=== PATIENT | female | born 1980 | race African-American/Black ===

== ENCOUNTER 2017-04-20 15:43 | Inpatient (IN) | payer MEDICAID ==
[~2017-04-20] VITALS: Ht 172.7 cm; Wt 61.2 kg
[2017-04-20 18:13] LABS: CHLORIDE 100 mEq/L (98-107)
[2017-04-20 18:18] LABS: HEMATOCRIT. 34.1 % (36.0-48.0); HEMOGLOBIN. 11.2 g/dL (12.0-16.0); MEAN CORPUSCULAR HEMOGLOBIN 26.8 pg (28.0-32.0); MEAN CORPUSCULAR VOLUME 81.5 fL (81.0-99.0); MEAN PLATELET VOLUME 7.7 fl (7.4-10.4); PLATELET 272 x1000/uL (130-400); RED BLOOD CELL COUNT 4.18 mill/uL (4.2-5.4); RED CELL DISTRIBUTION WIDTH 14.5 % (11.6-14.6)
[2017-04-20 18:19] LABS: CARBON DIOXIDE 25 mEq/L (21-32)
[2017-04-20 18:23] LABS: INR 1.3; PROTHROMBIN TIME 13.2 sec (9.4-11.6)
[2017-04-20 18:24] LABS: TROPONIN I < 0.02 ng/mL (0.00-0.04)
[2017-04-20] MEDS ORDERED: ONDANSETRON HCL 4MG/2ML VIAL IV ONE (19:00)
[2017-04-20] MEDS ORDERED: LEVOFLOXACIN 750MG PREMIX 150 ML IV ONE (19:00)
[2017-04-20] MEDS ORDERED: MORPHINE SULFATE 4 MG/ML CPJ (NOT FOR IM USE) IV ONE (19:00)
[2017-04-20] MEDS ORDERED: SODIUM CHLORIDE 0.9% 1,000 ML IV SCH (20:11)
[2017-04-20] MEDS ORDERED: ALBUTEROL (0.083%) 2.5MG/3ML NEB HHN ONE (20:45)
[2017-04-20] MEDS ORDERED: METHYLPREDNISOLONE SOD SUCC 125 MG/2 ML VIAL IV ONE (20:45)
[2017-04-20] MEDS ORDERED: IPRATROPIUM BROMIDE (0.02%) 0.5MG/2.5ML NEB HHN ONE (20:45)
[2017-04-20 20:48] LABS: PLATELET ESTIMATE NORMAL
[2017-04-20 23:45] VITALS: BP 121/80
[2017-04-21] VITALS: BP 121/80
[2017-04-21] MEDS ORDERED: ALBU18HF2 ORI (00:13)
[2017-04-21] MEDS ORDERED: FERR325T6 PO (00:15)
[2017-04-21] MEDS ORDERED: SERT100T PO (00:15)
[2017-04-21] MEDS ORDERED: QVAR ORI (00:15)
[2017-04-21] MEDS ORDERED: QUET25TA PO (00:15)
[2017-04-21] MEDS ORDERED: MORPHINE SULFATE 4 MG/ML CPJ (NOT FOR IM USE) IV PRN (02:00)
[2017-04-21] MEDS ORDERED: IPRATROPIUM/ALBUTEROL 0.5-3(2.5)MG/3ML NEB INH PRN (02:00)
[2017-04-21] MEDS ORDERED: CLONIDINE 0.1MG TABLET PO PRN (02:00)
[2017-04-21] MEDS ORDERED: GUAIFENESIN 200MG/10ML SUGAR FREE UDC PO PRN (02:00)
[2017-04-21] MEDS ORDERED: DIPHENHYDRAMINE 50MG/ML VIAL IV PRN (02:00)
[2017-04-21] MEDS ORDERED: SERTRALINE HCL 100MG TABLET PO SCH (02:17)
[2017-04-21 04:00] VITALS: BP 107/66
[2017-04-21] MEDS: METHYLPREDNISOLONE SOD SUCC 40 MG/ML VIAL IV SCH ×3 (05:41→21:02)
[2017-04-21 07:39] LABS: HEMATOCRIT. 31.6 % (36.0-48.0); HEMOGLOBIN. 10.3 g/dL (12.0-16.0); MEAN CORPUSCULAR VOLUME 82.7 fL (81.0-99.0); MEAN PLATELET VOLUME 7.9 fl (7.4-10.4); PLATELET 271 x1000/uL (130-400); RED BLOOD CELL COUNT 3.82 mill/uL (4.2-5.4); RED CELL DISTRIBUTION WIDTH 14.3 % (11.6-14.6)
[2017-04-21 08:00] VITALS: BP 106/67
[2017-04-21] MEDS: FERROUS SULFATE 325MG TABLET PO SCH ×2 (08:10→18:10)
[2017-04-21] MEDS: OMEPRAZOLE 20MG CAPSULE EXTENDED RELEASE PO SCH (08:40)
[2017-04-21] MEDS: ENOXAPARIN 40MG/0.4ML SYR SUBCUT SCH (08:40)
[2017-04-21 08:55] LABS: CARBON DIOXIDE 28 mEq/L (21-32); CHLORIDE 103 mEq/L (98-107)
[2017-04-21] MEDS: IPRATROPIUM/ALBUTEROL 0.5-3(2.5)MG/3ML NEB HHN SCH ×3 (08:59→20:56)
[2017-04-21] MEDS ORDERED: QUETIAPINE FUMARATE 25MG TABLET PO PRN (09:00)
[2017-04-21] MEDS ORDERED: MEDICATION NOT ON FORMULARY EA (Ferrous Sulfate 325 MG) PO SCH (09:00)
[2017-04-21 12:00] VITALS: BP 112/79
[2017-04-21 13:28] LABS: PLATELET ESTIMATE NORMAL
[2017-04-21 16:00] VITALS: BP 129/79
[2017-04-21] MEDS ORDERED: LEVOFLOXACIN 500MG PREMIX 100 ML IV SCH (19:00)
[2017-04-21 20:00] VITALS: BP 118/72
[2017-04-21] MEDS: ONDANSETRON HCL 4MG/2ML VIAL IV PRN (21:08)
[2017-04-21] MEDS: SERTRALINE HCL 100MG TABLET PO SCH (23:46)
[2017-04-22] VITALS: BP 121/75
[2017-04-22] MEDS: IPRATROPIUM/ALBUTEROL 0.5-3(2.5)MG/3ML NEB HHN SCH ×4 (01:40→21:55)
[2017-04-22 04:00] VITALS: BP 124/84
[2017-04-22] MEDS: METHYLPREDNISOLONE SOD SUCC 40 MG/ML VIAL IV SCH ×3 (05:48→21:12)
[2017-04-22 08:00] VITALS: BP 117/85
[2017-04-22] MEDS: FERROUS SULFATE 325MG TABLET PO SCH ×2 (08:10→18:04)
[2017-04-22] MEDS: ENOXAPARIN 40MG/0.4ML SYR SUBCUT SCH (09:00)
[2017-04-22] MEDS: OMEPRAZOLE 20MG CAPSULE EXTENDED RELEASE PO SCH (09:00)
[2017-04-22 12:00] VITALS: BP 127/93
[2017-04-22 15:16] LABS: HEMATOCRIT. 32.6 % (36.0-48.0); HEMOGLOBIN. 10.5 g/dL (12.0-16.0); MEAN CORPUSCULAR HEMOGLOBIN 26.6 pg (28.0-32.0); MEAN CORPUSCULAR VOLUME 82.7 fL (81.0-99.0); MEAN PLATELET VOLUME 7.8 fl (7.4-10.4); PLATELET 359 x1000/uL (130-400); RED BLOOD CELL COUNT 3.94 mill/uL (4.2-5.4); RED CELL DISTRIBUTION WIDTH 14.5 % (11.6-14.6)
[2017-04-22 15:36] LABS: CARBON DIOXIDE 28 mEq/L (21-32); CHLORIDE 103 mEq/L (98-107)
[2017-04-22 16:00] VITALS: BP 124/85
[2017-04-22] MEDS: CEFTRIAXONE 2 G in DEXT 5% WATER 100 ML IV SCH (16:37)
[2017-04-22] MEDS ORDERED: VANCOMYCIN 1250MG in DEXTROSE 5% WATER 250ML IV SCH (17:00)
[2017-04-22 19:20] LABS: CLARITY URINE CLEAR (CLEAR); COLOR URINE YELLOW (YELLOW); GLUCOSE URINE 2+ (NEGATIVE); KETONES URINE NEGATIVE (NEGATIVE); LEUKOCYTE ESTERASE URINE NEGATIVE (NEGATIVE); NITRITE URINE NEGATIVE (NEGATIVE); OCCULT BLOOD URINE NEGATIVE (NEGATIVE); PROTEIN URINE 1+ (NEGATIVE); SPECIFIC GRAVITY URINE 1.032 (1.005-1.030)
[2017-04-22 20:00] VITALS: BP 130/79
[2017-04-22 21:00] LABS: PLATELET ESTIMATE NORMAL
[2017-04-22] MEDS: SERTRALINE HCL 100MG TABLET PO SCH (21:12)
[2017-04-22] MEDS: ONDANSETRON HCL 4MG/2ML VIAL IV PRN (22:12)
[2017-04-22] MEDS ORDERED: DEXTROSE 50% WATER 50ML SYRINGE IV PRN (22:45)
[2017-04-22] MEDS ORDERED: POTASSIUM CHLORIDE 20MEQ TABLET SR PO NR (22:52)
[2017-04-22] MEDS: ACETAMINOPHEN 325MG TABLET PO PRN (22:56)
[2017-04-23] VITALS: BP 123/93
[2017-04-23] MEDS: VANCOMYCIN 1 G PREMIX 200 ML IV SCH ×2 (02:00→09:28)
[2017-04-23] MEDS: IPRATROPIUM/ALBUTEROL 0.5-3(2.5)MG/3ML NEB HHN SCH ×4 (02:39→15:44)
[2017-04-23 04:00] VITALS: BP 124/71
[2017-04-23] MEDS: BLOOD SUGAR DIAGNOSTIC STRIP TEST SCH ×4 (05:33→20:53)
[2017-04-23] MEDS: METHYLPREDNISOLONE SOD SUCC 40 MG/ML VIAL IV SCH ×3 (05:44→20:33)
[2017-04-23 05:46] LABS: HEMATOCRIT. 30.8 % (36.0-48.0); HEMOGLOBIN. 10.2 g/dL (12.0-16.0); MEAN CORPUSCULAR HEMOGLOBIN 27.4 pg (28.0-32.0); MEAN CORPUSCULAR VOLUME 82.6 fL (81.0-99.0); MEAN PLATELET VOLUME 7.6 fl (7.4-10.4); PLATELET 377 x1000/uL (130-400); RED BLOOD CELL COUNT 3.74 mill/uL (4.2-5.4); RED CELL DISTRIBUTION WIDTH 14.6 % (11.6-14.6)
[2017-04-23 06:48] LABS: CARBON DIOXIDE 28 mEq/L (21-32); CHLORIDE 103 mEq/L (98-107)
[2017-04-23 08:00] VITALS: BP 137/90
[2017-04-23] MEDS: INSULIN LISPRO 100 UNITS/ML SUBCUT SCH ×4 (08:10→20:53)
[2017-04-23] MEDS: FERROUS SULFATE 325MG TABLET PO SCH ×2 (08:10→17:10)
[2017-04-23] MEDS: OMEPRAZOLE 20MG CAPSULE EXTENDED RELEASE PO SCH (09:26)
[2017-04-23] MEDS: ACETAMINOPHEN 325MG TABLET PO PRN (09:27)
[2017-04-23] MEDS: ENOXAPARIN 40MG/0.4ML SYR SUBCUT SCH (09:27)
[2017-04-23 12:00] VITALS: BP 128/85
[2017-04-23 16:00] VITALS: BP 125/80
[2017-04-23] MEDS: CEFTRIAXONE 2 G in DEXT 5% WATER 100 ML IV SCH (17:59)
[2017-04-23 20:00] VITALS: BP 121/86
[2017-04-23] MEDS: SERTRALINE HCL 100MG TABLET PO SCH (20:33)
[2017-04-23 20:51] LABS: PLATELET ESTIMATE NORMAL
[2017-04-24] VITALS: BP 125/76
[2017-04-24] MEDS: IPRATROPIUM/ALBUTEROL 0.5-3(2.5)MG/3ML NEB HHN SCH ×2 (00:33→16:34)
[2017-04-24 04:00] VITALS: BP 141/87
[2017-04-24] MEDS: METHYLPREDNISOLONE SOD SUCC 40 MG/ML VIAL IV SCH ×2 (06:25→13:35)
[2017-04-24 06:50] LABS: HEMATOCRIT. 31.9 % (36.0-48.0); HEMOGLOBIN. 10.5 g/dL (12.0-16.0); MEAN CORPUSCULAR HEMOGLOBIN 26.9 pg (28.0-32.0); PLATELET 442 x1000/uL (130-400); RED BLOOD CELL COUNT 3.89 mill/uL (4.2-5.4); RED CELL DISTRIBUTION WIDTH 14.4 % (11.6-14.6)
[2017-04-24] MEDS: BLOOD SUGAR DIAGNOSTIC STRIP TEST SCH ×2 (07:12→12:53)
[2017-04-24 07:18] LABS: CARBON DIOXIDE 30 mEq/L (21-32); CHLORIDE 102 mEq/L (98-107)
[2017-04-24 08:00] VITALS: BP 135/75
[2017-04-24] MEDS: FERROUS SULFATE 325MG TABLET PO SCH (08:10)
[2017-04-24] MEDS: INSULIN LISPRO 100 UNITS/ML SUBCUT SCH ×2 (08:10→13:10)
[2017-04-24] MEDS: ENOXAPARIN 40MG/0.4ML SYR SUBCUT SCH (08:50)
[2017-04-24] MEDS: OMEPRAZOLE 20MG CAPSULE EXTENDED RELEASE PO SCH (08:50)
[2017-04-24 12:00] VITALS: BP 128/80
[2017-04-24 14:45] LABS: PLATELET ESTIMATE SLIGHTLY INCREASED
[2017-04-24 17:16] VITALS: BP 138/80
== END 2017-04-24 18:05 | disposition home or self-care (01) | DRG 720 ==
LOC: ER 16:35 → 7WST 18:56 → ENRESERV 20:03 → 7WST 04-21 01:47
PROVIDERS: ADMIT Internal Medicine; ATTEND Internal Medicine
DX: A41.9 Sepsis, unspecified organism (principal); J96.00 Acute respiratory failure, unspecified whether with hypoxia or hypercapnia; E43 Unspecified severe protein-calorie malnutrition; J18.1 Lobar pneumonia, unspecified organism; J45.901 Unspecified asthma with (acute) exacerbation; D64.9 Anemia, unspecified; D75.89 Other specified diseases of blood and blood-forming organs; Z98.84 Bariatric surgery status; Z87.891 Personal history of nicotine dependence; F12.10 Cannabis abuse, uncomplicated; F32.9 Major depressive disorder, single episode, unspecified; F41.9 Anxiety disorder, unspecified; Z79.899 Other long term (current) drug therapy
CPT/HCPCS: 36415; 71010; 80048; 80053; 80202; 81001; 82962; 83036; 83605; 83690; 84484; 85025; 85610; 87040; 87070; 87077; 87086; 87186; 93005; 94640; 96365; 96366; 96375; 97161; 99285; J0696; J1650; J1956; J2270; J2405; J2920; J2930; J3370; J7030; J7050; J7060; J7611; J7620

== ENCOUNTER 2018-11-15 12:05 | Emergency (ER) | payer MEDICAID ==
[~2018-11-15] VITALS: Ht 172.7 cm; Wt 59.0 kg
[~2018-11-15 12:05] MED LIST: FERR325T6 PO; QUET25TA PO; QVAR ORI; SERT100T PO
[2018-11-15] MEDS ORDERED: SODIUM CHLORIDE 0.9% 1,000 ML IV ONE (13:51)
[2018-11-15 14:10] LABS: BASOPHILS % 0.4 % (0.0-2.0); EOSINOPHILS % 2.7 % (0.0-5.0); HEMATOCRIT. 33.8 % (36.0-48.0); HEMOGLOBIN. 11.1 g/dL (12.0-16.0); LYMPHOCYTES % 8.3 % (20.0-50.0); MEAN CORPUSCULAR HEMOGLOBIN 28.1 pg (28.0-32.0); MEAN CORPUSCULAR VOLUME 85.4 fL (81.0-99.0); MEAN PLATELET VOLUME 6.4 fl (7.4-10.4); MONOCYTES % 11.1 % (2.0-8.0); NEUTROPHILS % 77.5 % (40.0-76.0); PLATELET 259 x1000/uL (130-400); RED BLOOD CELL COUNT 3.95 mill/uL (4.2-5.4); RED CELL DISTRIBUTION WIDTH 15.7 % (11.6-14.6)
[2018-11-15 14:17] LABS: CHLORIDE 107 mEq/L (98-107)
[2018-11-15 14:18] LABS: PROTHROMBIN TIME 10.4 sec (9.6-11.0)
[2018-11-15 19:48] LABS: CLARITY URINE CLEAR (CLEAR); COLOR URINE YELLOW (YELLOW); KETONES URINE TRACE (NEGATIVE); LEUKOCYTE ESTERASE URINE NEGATIVE (NEGATIVE); NITRITE URINE NEGATIVE (NEGATIVE); OCCULT BLOOD URINE NEGATIVE (NEGATIVE); PROTEIN URINE NEGATIVE (NEGATIVE); SPECIFIC GRAVITY URINE 1.025 (1.005-1.030)
[2018-11-15 21:21] VITALS: BP 114/83
== END 2018-11-15 21:23 | disposition home or self-care (01) ==
LOC: ER 12:05
DX: O26.892 Other specified pregnancy related conditions, second trimester (principal); R10.0 Acute abdomen; J06.9 Acute upper respiratory infection, unspecified; O09.522 Supervision of elderly multigravida, second trimester; Z3A.17 17 weeks gestation of pregnancy
CPT/HCPCS: 36415; 80053; 81003; 83605; 83690; 85025; 85610; 87804; 96360; 99284; J7030; Z7610